=== PATIENT | male | born 1940 | race Caucasian/White ===

== ENCOUNTER → 2016-05-15 | Day surgery (SDC) | payer MEDICARE, OTHER ==
[~2016-05-15] VITALS: Ht 165.1 cm; Wt 72.4 kg
[~2016-05-15] MED LIST: ADVAIR 500-501 EACH INH; ALBUTEROL0.63 MG/3 INH; AMBIEN5 MG PO; ASCORBIC ACID500 MG PO; ASPIRIN EC81 MG PO; BENADRYL25 MG PO; CENTRUM SILVER1 EAC1 PO; DESYREL50 MG PO; FEOSOL325 MG PO; FLOMAX0.4 MG PO; GLUCOPHAGE500 MG PO; HUMIBID LA (MU600 MG PO; INVOKANA300 MG PO; LASIX20 MG PO; LEVEMIR100 UNIT/1 SUB-Q; LEVOTHROID(SYN75 MCG PO; MAGNESIUM250 M1 PO; MELATONIN5 M2 PO; NEURONTIN300 MG PO; NEXIUM40 MG PO; NORCO 5-325 TA1 EACH PO; NORTRIPTYLINE H25 MG PO; OXYGEN M-15 INH; PROSCAR5 MG PO; SPIRIVA RESPIMAT4 G1 INH; TENORMIN25 MG PO; TRICOR145 MG PO; ZANTAC (NON-FO150 MG PO; ZESTRIL2.5 MG PO; ZOCOR40 MG PO
--- NOTE | ~2016-05-15 | OR ---
PATIENT'S NAME: SEEMA ABREU [facility] AGE: 76 Y [address] ROOM: [place] [address] LOCATION: [facility] [place] DATE: 05/15/2016 OR/Procedure Report DISCHARGE DATE: FAMILY PHYSICIAN: Shannon Boyce ATTENDING PHYSICIAN: Jared Car SURGEON: Jared Car MD GENERAL ADJUSTER: DATE OF PROCEDURE: 05/15/2016 PREOPERATIVE DIAGNOSES: 1. Extensive urothelial carcinoma. 2. Gross hematuria. 3. Phimosis. 4. Multiple and severe comorbidities with cardiopulmonary disease, insulin- dependent diabetes, history of colon cancer with multiple surgeries. POSTOPERATIVE DIAGNOSES: 1. Extensive urothelial carcinoma. 2. Gross hematuria. 3. Phimosis. 4. Multiple and severe comorbidities with cardiopulmonary disease, insulin- dependent diabetes, history of colon cancer with multiple surgeries, with a complete phimosis. PROCEDURE PERFORMED: 1. Dorsal slit. 2. Cystoscopy with extensive cauterization of bladder and bladder cancer. ANESTHESIA: Regional. INDICATION: This is a 76-year-old gentleman with the above-noted diagnoses. He had extensive urothelial carcinoma diagnosed last year. He is extremely at high risk. He is not a candidate for cystectomy. We have been following him conservatively. He has also felt that he may have developed a fistula. Fortunately, his pneumaturia is resolved. He recently had more gross hematuria. He presents at this time for cystoscopy with possible resection versus cauterization of his bladder and bladder tumor. He is also concerned that he cannot get his foreskin back at this time. DESCRIPTION OF PROCEDURE: Having obtained his informed consent, the patient was taken to the cystoscopy suite. Prepped and draped sterilely and in lithotomy position. We can begin to get his foreskin back. Indeed, with all of the issues, I think a dorsal slit would be adequate for symptomatic improvement. A crushing clamp was placed on the dorsal tissue. It is divided. I then used a running 3-0 chromic up each side. This actually gives PATIENT'S NAME: SEEMA ABREU [facility] AGE: 76 Y [address] ROOM: [place] [address] [place]: [facility] [place] DATE: 05/15/2016 OR/Procedure Report DISCHARGE DATE: FAMILY PHYSICIAN: Shannon Boyce ATTENDING PHYSICIAN: Jarde Car him a nice result and allows his foreskin to go back easily. On cystoscopy, we see much debris in the bladder. He has multiple oozing sites. Interestingly, after his last intervention in [place], he has a huge saucer-shaped defect on the right side towards the dome. It gives the impression of a diverticulum, but we can see where it was resected around the periphery of it. He also has multiple oozing and bleeding sites. Does not have any obvious large gross tumor. Bladder examination was confirmed with a 70-degree lens, after I washed a lot of the debris out. Both orifices were visualized. I have placed a resectoscope and using continuous irrigation, I used a button electrode and cauterized all of the red and erythematous areas. We also were able, with the resectoscope, to get more of the debris out. At the conclusion, he has a diseased-appearing bladder, but with no obvious disease and with no obvious bleeding points. After all of the cauterization, leave a Pettit catheter. A 20-Y[place] catheter was placed. Irrigates nicely. Antibiotic ointment and a wrap dressing is placed around the dorsal slit and the catheter. The case was concluded. The patient tolerated the procedure well. Blood loss was minimal. No specimens were sent. The patient returned to the outpatient recovery, awake and in stable condition. JARED CAR MD [facility]/modl /[id number] CC: CNONER Titus d: 05/15/16 2233 t: 06/04/16 1039, OPERATIVE SUMMARY
[2016-05-15 11:23] LABS: BASOPHIL # 0.1 K/uL (0.0-0.2); BASOPHIL % 0.8 %; EOSINOPHIL # 0.2 K/uL (0.0-0.5); HEMATOCRIT 34.1 % (37.0-53.0); HEMOGLOBIN 9.6 g/dL (11.0-16.0); IMMATURE GRANULOCYTE # 0.2 K/uL (0.0-0.3); IMMATURE GRANULOCYTE % 1.9 %; LYMPHOCYTE # 0.9 K/uL (0.8-4.0); LYMPHOCYTE % 11.6 %; MCHC 28.2 gm/dL (32.0-36.5); MONOCYTE # 0.5 K/uL (0.0-1.0); MONOCYTE % 6.9 %; MPV 9.8 fl (9.4-12.4); NEUTROPHIL % 76.8 %; NRBC % 0 /100WBC (0-0.00); WBC 7.9 K/uL (4.0-11.0)
[2016-05-15 11:24] LABS: MCH 20.5 pg (27.0-34.0); MCV 72.9 fl (83.0-98.0); PLATELET COUNT 353 K/uL (150-450); RBC 4.68 M/uL (3.50-5.50); RDW-CV 19.1 % (11.9-14.6)
[2016-05-15 11:39] LABS: ALBUMIN 3.1 gm/dL (3.5-5.0); ANION GAP 12.2 (10.0-19.0); CALCIUM 9.6 mg/dL (8.5-10.5); CREATININE 1.3 mg/dL (0.6-1.3); POTASSIUM 4.2 mMol/L (3.7-5.1); TOTAL BILIRUBIN 0.3 mg/dL (0.0-1.5); TOTAL PROTEIN 8.3 g/dL (6.0-8.4)
== END | disposition disaster alternative care site (69) ==
LOC: GPOC 05-13 11:00 → GSDC 10:37 → GPOC 11:00
PROVIDERS: Urology
PROC: 0TCB8ZZ Extirpation of Matter from Bladder, Via Natural or Artificial Opening Endoscopic (ICD-10-PCS; principal; 2016-05-15)
PROC: 0VTTXZZ Resection of Prepuce, External Approach (ICD-10-PCS; 2016-05-15)
DX: C67.9 Malignant neoplasm of bladder, unspecified (principal); N47.1 Phimosis; E10.9 Type 1 diabetes mellitus without complications; I27.9 Pulmonary heart disease, unspecified; J44.9 Chronic obstructive pulmonary disease, unspecified; I25.10 Atherosclerotic heart disease of native coronary artery without angina pectoris; Z93.3 Colostomy status; Z87.891 Personal history of nicotine dependence; Z90.49 Acquired absence of other specified parts of digestive tract
CPT/HCPCS: J1956; J2001; J7030

== ENCOUNTER → 2016-08-12 | Day surgery (SDC) | payer MEDICARE, OTHER ==
[~2016-08-12] MED LIST changes: +NAMENDA5 MG PO
[2016-08-12 14:20] LABS: BASOPHIL # 0.1 K/uL (0.0-0.2); BASOPHIL % 0.8 %; EOSINOPHIL # 0.1 K/uL (0.0-0.5); EOSINOPHIL % 1.6 %; HEMATOCRIT 39.3 % (37.0-53.0); HEMOGLOBIN 12.2 g/dL (11.0-16.0); IMMATURE GRANULOCYTE # 0.2 K/uL (0.0-0.3); LYMPHOCYTE % 13.6 %; MCH 23.8 pg (27.0-34.0); MONOCYTE # 0.7 K/uL (0.0-1.0); MONOCYTE % 9.9 %; MPV 9.4 fl (9.4-12.4); NEUTROPHIL # (ANC) 5.2 K/uL (1.4-9.0); NEUTROPHIL % 71.1 %; NRBC % 0 /100WBC (0-0.00); PLATELET COUNT 302 K/uL (150-450); RBC 5.12 M/uL (3.50-5.50); RDW-CV 18.6 % (11.9-14.6); WBC 7.3 K/uL (4.0-11.0)
[2016-08-12 14:21] LABS: MCV 76.8 fl (83.0-98.0)
[2016-08-12 14:27] LABS: INR - (THERAPEUTIC) 0.99 (0.92-1.07); PROTIME 10.4 SECONDS (9.8-11.4)
[2016-08-12 14:37] LABS: ALBUMIN 2.9 gm/dL (3.5-5.0); ANION GAP 12.4 (10.0-19.0); CALCIUM 9.7 mg/dL (8.5-10.5); CREATININE 1.5 mg/dL (0.6-1.3); POTASSIUM 4.4 mMol/L (3.7-5.1); TOTAL PROTEIN 8.3 g/dL (6.0-8.4)
[2016-08-12 14:39] LABS: TOTAL BILIRUBIN 0.4 mg/dL (0.0-1.5)
== END ==
LOC: GOPD 08-08
PROVIDERS: Urology
DX: N13.6 Pyonephrosis (principal); K60.3 Anal fistula; C80.1 Malignant (primary) neoplasm, unspecified; R31.0 Gross hematuria; D29.1 Benign neoplasm of prostate
CPT/HCPCS: C1729; C1769; C1887; J1956; J2250; J3010; J7030; J7040

== ENCOUNTER → 2016-09-09 | Outpatient (CLI) | payer MEDICARE, OTHER | END | disposition disaster alternative care site (69) | LOC: GOPD 09-04 | PROC: 0T25X0Z Change Drainage Device in Kidney, External Approach (ICD-10-PCS; principal; 2016-09-09) | DX: Z43.6 Encounter for attention to other artificial openings of urinary tract (principal) | CPT/HCPCS: C1729; C1769; J7030 ==

== ENCOUNTER → 2016-10-10 | Outpatient (CLI) | payer MEDICARE, OTHER | LOC: GOPD 09-30 10:30 | PROC: 0T25X0Z Change Drainage Device in Kidney, External Approach (ICD-10-PCS; principal; 2016-10-10) | DX: N32.1 Vesicointestinal fistula (principal); I10 Essential (primary) hypertension; J44.9 Chronic obstructive pulmonary disease, unspecified; E11.9 Type 2 diabetes mellitus without complications; M19.90 Unspecified osteoarthritis, unspecified site | CPT/HCPCS: C1729; C1769; J7030 ==